=== PATIENT | female | born 1945 | race Caucasian/White ===

== ENCOUNTER 2018-01-13 07:52 | Day surgery (SDC) | payer MEDICARE, OTHER ==
[~2018-01-13 07:52] MED LIST: PROPOFOL 500 MG/50 ML EMU IV ONE
[2018-01-13 09:34] VITALS: BP 110/56; PULSE 56; RESP 18; TEMP 97.4; O2SAT 98
== END 2018-01-13 10:00 | disposition home or self-care (01) | DRG 951 ==
LOC: SURG 07:52
PROVIDERS: ATTEND Surgery
DX: Z12.11 Encounter for screening for malignant neoplasm of colon (principal); K51.40 Inflammatory polyps of colon without complications; Z86.010 Personal history of colon polyps; K57.30 Diverticulosis of large intestine without perforation or abscess without bleeding
CPT/HCPCS: J2704